=== PATIENT | male | born 1985 | race African-American/Black ===

== ENCOUNTER 2018-10-14 12:43 | Inpatient (IN) | payer MEDICAID ==
[~2018-10-14] VITALS: Ht 182.9 cm; Wt 84.1 kg
[2018-10-14] MEDS ORDERED: LORazepam 2 MG/ML VIAL IM ONE (13:15)
[2018-10-14] MEDS ORDERED: HALOPERIDOL LACTATE 5 MG/ML VIAL IM ONE (13:15)
[2018-10-14] MEDS ORDERED: DiphenhydrAMINE HCL 50 MG/ML VIAL IM ONE (13:15)
[2018-10-14 14:58] LABS: BASOPHILS % (AUTO) 0.9 % (0.0-2.0); EOSINOPHILS % (AUTO) 4.3 % (1.0-6.0); HEMATOCRIT 42.7 % (41-53); HEMOGLOBIN 13.9 g/dL (13.5-17.5); LYMPHOCYTES # (AUTO) 1.8 K/uL (1.0-4.8); LYMPHOCYTES % (AUTO) 40.1 % (22.0-44.0); MEAN CORPUSCULAR HEMOGLOBIN 30.9 pg (26.0-34.0); MEAN CORPUSCULAR HGB CONC 32.6 G/dL (31.0-37.0); MEAN CORPUSCULAR VOLUME 95 fL (80-100); MONOCYTES # (AUTO) 0.4 K/uL (0.1-1.0); MONOCYTES % (AUTO) 7.8 % (2.0-9.0); NEUTROPHILS # (AUTO) 2.1 K/uL (1.8-7.7); NEUTROPHILS % (AUTO) 46.9 % (40.0-70.0); PLATELET COUNT (AUTO) 367 K/uL (150-450); RED CELL DISTRIBUTION WIDTH 13.1 % (11.5-14.5)
[2018-10-14] MEDS ORDERED: ZOLPIDEM TARTRATE 10 MG TABLET PO PRN (15:00)
[2018-10-14 15:06] LABS: ANION GAP 12 mmol/L (8-16); CALCIUM, TOTAL 8.3 mg/dL (8.8-10.5); CARBON DIOXIDE 23 mmol/L (22-29); CHLORIDE 107 mmol/L (98-107); CREATININE 0.84 mg/dL (0.60-1.30); GLOMERULAR FILTR. RATE CALC > 60 mL/min (>60); GLUCOSE,RANDOM 77 mg/dL (70-110); POTASSIUM 3.7 mmol/L (3.5-5.1); SODIUM SERUM 142 mmol/L (136-145); UREA NITROGEN, BLOOD 14 mg/dL (7-18)
[2018-10-14 15:12] LABS: ALANINE AMINOTRANSFERASE 28 U/L (12-78); ALBUMIN 3.5 g/dL (3.4-5.0); ALKALINE PHOSPHATASE 89 U/L (46-116); ASPARTATE AMINOTRANSFERASE 36 U/L (15-37); BILIRUBIN,TOTAL 0.3 mg/dL (0.1-1.0); TOTAL PROTEIN, SERUM 6.7 g/dL (6.4-8.2)
[2018-10-14 21:39] VITALS: BP 127/72
[2018-10-14 21:40] VITALS: BP 127/72
[2018-10-15] VITALS (10 sets, daily range): BP systolic 116–149; BP diastolic 69–86
[2018-10-15 09:07] LABS: CHOL/HDL RATIO 2.2 (4.2-7.3); FREE T4 (FREE THYROXINE) 0.87 ng/dL (0.76-1.46); THYROID STIMULATING HORMONE 0.41 uIU/mL (0.36-3.74)
[2018-10-15] MEDS ORDERED: BACITRACIN 28.4 GM OINTMENT TP PRN (12:15)
[2018-10-15] MEDS ORDERED: CloNIDine HCL 0.1 MG TABLET PO PRN (12:15)
[2018-10-15] MEDS ORDERED: BENZOCAINE/MENTHOL LOZENGE MM PRN (12:15)
[2018-10-15] MEDS ORDERED: MAGNESIUM HYDROXIDE SUSPENSION 30 ML UDCUP PO PRN (12:15)
[2018-10-15] MEDS ORDERED: ACETAMINOPHEN 325 MG TABLET PO PRN (12:15)
[2018-10-15] MEDS ORDERED: PETROLATUM,WHITE 71 GM JELLY TP PRN (12:15)
[2018-10-15] MEDS ORDERED: MAG HYDROX/AL HYDROX/SIMETH ES 30 ML SUSPENSION UDCUP PO PRN (12:15)
[2018-10-15] MEDS ORDERED: IBUPROFEN 600 MG TABLET PO PRN (12:15)
[2018-10-15] MEDS ORDERED: ALBUTEROL SULFATE HFA 90 MCG/PUFF 8 GM INHALER IH PRN (12:15)
[2018-10-15] MEDS ORDERED: LOPERAMIDE HCL 2 MG CAPSULE PO PRN (12:15)
[2018-10-15] MEDS ORDERED: ONDANSETRON HCL 4 MG TABLET PO PRN (12:15)
[2018-10-15] MEDS: LORazepam 2 MG TABLET PO PRN (16:58)
[2018-10-15] MEDS: QUEtiapine FUMARATE 25 MG TABLET PO SCH (20:44)
[2018-10-16 08:58] VITALS: BP 137/75
[2018-10-16] MEDS: DOCUSATE SODIUM 100 MG CAPSULE PO SCH (09:00)
[2018-10-16] MEDS: OMEPRAZOLE 20 MG CAPSULE PO SCH (09:00)
[2018-10-16 09:22] VITALS: BP 137/75
[2018-10-16] MEDS ORDERED: HALOPERIDOL LACTATE 5 MG/ML VIAL IM ONE (10:00)
[2018-10-16] MEDS ORDERED: DiphenhydrAMINE HCL 50 MG/ML VIAL IM ONE (10:00)
[2018-10-16] MEDS ORDERED: LORazepam 2 MG/ML VIAL IM ONE (10:00)
[2018-10-16] MEDS ORDERED: LORazepam 2 MG/ML VIAL ONE (10:04)
[2018-10-16] MEDS ORDERED: DiphenhydrAMINE HCL 50 MG/ML VIAL ONE (10:04)
[2018-10-16] MEDS ORDERED: HALOPERIDOL LACTATE 5 MG/ML VIAL ONE (10:04)
[2018-10-16 10:45] VITALS: BP 135/85
[2018-10-16 16:03] VITALS: BP 135/81
[2018-10-16 16:05] VITALS: BP 135/81
[2018-10-16] MEDS: RisperiDONE 3 MG TABLET PO SCH (16:27)
[2018-10-16] MEDS: LORazepam 2 MG TABLET PO PRN (17:59)
[2018-10-16] MEDS: QUEtiapine FUMARATE 25 MG TABLET PO SCH (20:30)
[2018-10-17 00:59] VITALS: BP 127/88
[2018-10-17 01:00] VITALS: BP 127/88
[2018-10-17] MEDS: OMEPRAZOLE 20 MG CAPSULE PO SCH (08:06)
[2018-10-17] MEDS: DOCUSATE SODIUM 100 MG CAPSULE PO SCH (08:06)
[2018-10-17] MEDS: RisperiDONE 3 MG TABLET PO SCH ×2 (08:06→17:10)
[2018-10-17 08:49] VITALS: BP 126/81
[2018-10-17 09:07] VITALS: BP 126/81
[2018-10-17] MEDS: LORazepam 2 MG TABLET PO PRN ×2 (11:27→17:10)
[2018-10-17] MEDS: HALOPERIDOL 5 MG TABLET PO PRN (11:27)
[2018-10-17 16:00] VITALS: BP 128/74
[2018-10-17] MEDS: QUEtiapine FUMARATE 25 MG TABLET PO SCH (21:16)
[2018-10-18 00:30] VITALS: BP 126/72
[2018-10-18] MEDS: OMEPRAZOLE 20 MG CAPSULE PO SCH (08:24)
[2018-10-18] MEDS: HALOPERIDOL 5 MG TABLET PO PRN (08:24)
[2018-10-18] MEDS: DOCUSATE SODIUM 100 MG CAPSULE PO SCH (08:24)
[2018-10-18] MEDS: RisperiDONE 3 MG TABLET PO SCH (08:24)
[2018-10-18] MEDS: LORazepam 2 MG TABLET PO PRN (08:24)
[2018-10-18 08:30] VITALS: BP 136/84
[2018-10-18] MEDS ORDERED: QUET25TA PO (12:37)
[2018-10-18] MEDS ORDERED: RISP3TAB44 PO (12:37)
== END 2018-10-18 14:49 | disposition home or self-care (01) | DRG 750 ==
LOC: EMS 12:45 → B3A 18:41
PROVIDERS: ADMIT Psychiatry & Neurology Psychiatry; ATTEND Psychiatry & Neurology Psychiatry
DX: F25.9 Schizoaffective disorder, unspecified (principal); F41.9 Anxiety disorder, unspecified; G47.00 Insomnia, unspecified; K59.00 Constipation, unspecified
CPT/HCPCS: 84436; 84439; 84443; 96372; 99291; G0480; J1200; J1630; J2060

== ENCOUNTER 2019-06-09 19:15 | Inpatient (IN) | payer MEDICAID ==
[~2019-06-09] VITALS: Ht 180.3 cm; Wt 65.9 kg
[~2019-06-09 19:15] MED LIST: QUET25TA PO; RISP3TAB44 PO
[2019-06-09] MEDS ORDERED: DiphenhydrAMINE HCL 50 MG/ML VIAL IM ONE (19:45)
[2019-06-09] MEDS ORDERED: HALOPERIDOL LACTATE 5 MG/ML VIAL IM ONE (19:45)
[2019-06-09] MEDS ORDERED: LORazepam 2 MG/ML VIAL IM ONE (19:45)
[2019-06-09 20:01] LABS: AMPHET/METH SCREEN,URINE NEGATIVE (NEGATIVE); BARBITURATE SCREEN, URINE NEGATIVE (NEGATIVE); BENZODIAZEPINES SCREEN,URINE NEGATIVE (NEGATIVE); CANNABINOID SCREEN,URINE POSITIVE (NEGATIVE); COCAINE SCREEN,URINE NEGATIVE (NEGATIVE); METHADONE SCREEN, URINE NEGATIVE (NEGATIVE); OPIATE SCREEN,URINE NEGATIVE (NEGATIVE)
[2019-06-09 20:04] LABS: BASOPHILS % (AUTO) 1.1 % (0.0-2.0); EOSINOPHILS % (AUTO) 1.5 % (1.0-6.0); HEMATOCRIT 42.8 % (41-53); HEMOGLOBIN 14.8 g/dL (13.5-17.5); LYMPHOCYTES # (AUTO) 2.2 K/uL (1.0-4.8); LYMPHOCYTES % (AUTO) 42.6 % (22.0-44.0); MEAN CORPUSCULAR HEMOGLOBIN 33.6 pg (26.0-34.0); MEAN CORPUSCULAR HGB CONC 34.6 G/dL (31.0-37.0); MEAN CORPUSCULAR VOLUME 97 fL (80-100); MONOCYTES # (AUTO) 0.4 K/uL (0.1-1.0); NEUTROPHILS # (AUTO) 2.4 K/uL (1.8-7.7); NEUTROPHILS % (AUTO) 46.8 % (40.0-70.0); PLATELET COUNT (AUTO) 362 K/uL (150-450); RED BLOOD CELL COUNT(AUTO) 4.41 MIL/uL (4.50-5.90); RED CELL DISTRIBUTION WIDTH 13.6 % (11.5-14.5)
[2019-06-09 20:04] LABS: PHENCYCLIDINE SCREEN,URINE NEGATIVE (NEGATIVE)
[2019-06-09 20:05] LABS: APPEARANCE,URINE CLEAR (CLEAR); BILIRUBIN,URINE NEGATIVE (NEGATIVE); GLUCOSE, URINE (UA) NEGATIVE (NEGATIVE); KETONES,URINE NEGATIVE (NEGATIVE); LEUKOCYTE ESTERASE ,URINE NEGATIVE (NEGATIVE); NITRATE,URINE NEGATIVE (NEGATIVE); OCCULT BLOOD,URINE NEGATIVE (NEGATIVE); PROTEIN,URINE NEGATIVE (NEGATIVE)
[2019-06-09] MEDS ORDERED: ZOLPIDEM TARTRATE 10 MG TABLET PO PRN (20:15)
[2019-06-09] MEDS ORDERED: HALOPERIDOL 5 MG TABLET PO PRN (20:15)
[2019-06-09 20:16] LABS: ANION GAP 8 mmol/L (8-16); CALCIUM, TOTAL 7.9 mg/dL (8.8-10.5); CARBON DIOXIDE 29 mmol/L (22-29); CHLORIDE 105 mmol/L (98-107); CREATININE 0.99 mg/dL (0.60-1.30); GLOMERULAR FILTR. RATE CALC > 60 mL/min (>60); GLUCOSE,RANDOM 90 mg/dL (70-110); POTASSIUM 4.2 mmol/L (3.5-5.1); SODIUM SERUM 142 mmol/L (136-145); UREA NITROGEN, BLOOD 13 mg/dL (7-18)
[2019-06-09 20:21] LABS: ALANINE AMINOTRANSFERASE 17 U/L (12-78); ALBUMIN 3.2 g/dL (3.4-5.0); ALKALINE PHOSPHATASE 66 U/L (46-116); ASPARTATE AMINOTRANSFERASE 27 U/L (15-37); BILIRUBIN,TOTAL 0.3 mg/dL (0.1-1.0); TOTAL PROTEIN, SERUM 6.5 g/dL (6.4-8.2)
[2019-06-09 21:23] VITALS: BP 98/59
[2019-06-10 06:37] LABS: CHOL/HDL RATIO 2.1 (4.2-7.3)
[2019-06-10] MEDS ORDERED: LOPERAMIDE HCL 2 MG CAPSULE PO PRN (07:00)
[2019-06-10] MEDS ORDERED: DOCUSATE SODIUM 100 MG CAPSULE PO PRN (07:00)
[2019-06-10] MEDS ORDERED: IBUPROFEN 600 MG TABLET PO PRN (07:00)
[2019-06-10] MEDS ORDERED: ACETAMINOPHEN 325 MG TABLET PO PRN (07:00)
[2019-06-10] MEDS ORDERED: MAGNESIUM HYDROXIDE SUSPENSION 30 ML UDCUP PO PRN (07:00)
[2019-06-10] MEDS ORDERED: BACITRACIN 28.4 GM OINTMENT TP PRN (07:00)
[2019-06-10] MEDS ORDERED: MAG HYDROX/AL HYDROX/SIMETH ES 30 ML SUSPENSION UDCUP PO PRN (07:00)
[2019-06-10] MEDS ORDERED: OMEPRAZOLE 20 MG CAPSULE PO PRN (07:00)
[2019-06-10] MEDS ORDERED: ALBUTEROL SULFATE HFA 90 MCG/PUFF 8 GM INHALER IH PRN (07:00)
[2019-06-10] MEDS ORDERED: ONDANSETRON HCL 4 MG TABLET PO PRN (07:00)
[2019-06-10] MEDS ORDERED: BENZOCAINE/MENTHOL LOZENGE MM PRN (07:00)
[2019-06-10] MEDS ORDERED: PETROLATUM,WHITE 28 GM JELLY TP PRN (07:00)
[2019-06-10] MEDS ORDERED: CloNIDine HCL 0.1 MG TABLET PO PRN (07:00)
[2019-06-10 08:52] VITALS: BP 120/65
[2019-06-10] MEDS: RisperiDONE 2 MG TABLET PO SCH (18:23)
[2019-06-10] MEDS: DIVALPROEX SODIUM 500 MG DR TABLET PO SCH (18:23)
[2019-06-10 20:21] VITALS: BP 134/77
[2019-06-11] MEDS ORDERED: INFLUENZA VIRUS VACCINE QVS 2019-20 (3YR+)/PF 60 MCG/0.5 ML SYRINGE IM ONE (02:45)
[2019-06-11] MEDS: RisperiDONE 2 MG TABLET PO SCH ×2 (08:03→16:22)
[2019-06-11] MEDS: DIVALPROEX SODIUM 500 MG DR TABLET PO SCH ×2 (08:03→16:22)
[2019-06-11] MEDS: LORazepam 2 MG TABLET PO PRN (08:08)
[2019-06-11 09:58] VITALS: BP 143/83
[2019-06-11 16:46] VITALS: BP 125/83
[2019-06-12] MEDS: RisperiDONE 2 MG TABLET PO SCH (08:12)
[2019-06-12] MEDS: DIVALPROEX SODIUM 500 MG DR TABLET PO SCH (08:12)
[2019-06-12] MEDS: LORazepam 2 MG TABLET PO PRN (08:43)
[2019-06-12 09:46] VITALS: BP 143/92
[2019-06-12] MEDS ORDERED: DIVA-78 PO (12:44)
== END 2019-06-12 15:15 | disposition home or self-care (01) | DRG 750 ==
LOC: EMS 19:16 → 3EC 20:30
PROVIDERS: ADMIT Psychiatry & Neurology Psychiatry; ATTEND Psychiatry & Neurology Psychiatry
DX: F20.0 Paranoid schizophrenia (principal); I95.9 Hypotension, unspecified; E83.51 Hypocalcemia; Z59.0 Homelessness; F10.10 Alcohol abuse, uncomplicated; F12.90 Cannabis use, unspecified, uncomplicated; F19.10 Other psychoactive substance abuse, uncomplicated; Z71.41 Alcohol abuse counseling and surveillance of alcoholic; Z71.89 Other specified counseling
CPT/HCPCS: G0480; J1200; J1630; J2060

== ENCOUNTER 2020-12-15 12:57 | Inpatient (IN) | payer MEDICAID, OTHER ==
[~2020-12-15] VITALS: Ht 182.9 cm; Wt 88.9 kg
[~2020-12-15 12:57] MED LIST changes: +DIVA-112 PO; -QUET25TA PO
[2020-12-15] MEDS ORDERED: LORazepam 2 MG/ML VIAL IM ONE (15:45)
[2020-12-15] MEDS ORDERED: HALOPERIDOL LACTATE 5 MG/ML VIAL IM ONE (15:45)
[2020-12-15] MEDS ORDERED: DiphenhydrAMINE HCL 50 MG/ML VIAL IM ONE (15:45)
[2020-12-15] MEDS ORDERED: HALOPERIDOL 5 MG TABLET PO PRN (20:00)
[2020-12-15] MEDS ORDERED: LORazepam 2 MG TABLET PO PRN (20:00)
[2020-12-15] MEDS ORDERED: ZOLPIDEM TARTRATE 10 MG TABLET PO PRN (20:00)
[2020-12-15 20:21] LABS: COVID AG,FIA SOURCE NASOPHARYNGEAL
[2020-12-15 21:18] LABS: BASOPHILS % (AUTO) 0.7 % (0.0-2.0); EOSINOPHILS % (AUTO) 1.6 % (1.0-6.0); HEMATOCRIT 43.9 % (41-53); HEMOGLOBIN 14.7 g/dL (13.5-17.5); LYMPHOCYTES # (AUTO) 2.8 K/uL (1.0-4.8); LYMPHOCYTES % (AUTO) 41.6 % (22.0-44.0); MEAN CORPUSCULAR HEMOGLOBIN 31.2 pg (26.0-34.0); MEAN CORPUSCULAR HGB CONC 33.4 G/dL (31.0-37.0); MEAN CORPUSCULAR VOLUME 93 fL (80-100); MONOCYTES # (AUTO) 0.8 K/uL (0.1-1.0); MONOCYTES % (AUTO) 11.5 % (2.0-9.0); NEUTROPHILS % (AUTO) 44.6 % (40.0-70.0); PLATELET COUNT (AUTO) 424 K/uL (150-450); RED BLOOD CELL COUNT(AUTO) 4.71 MIL/uL (4.50-5.90); RED CELL DISTRIBUTION WIDTH 13.6 % (11.5-14.5)
[2020-12-15 21:37] LABS: ALANINE AMINOTRANSFERASE 29 U/L (12-78); ALBUMIN 3.3 g/dL (3.4-5.0); ALKALINE PHOSPHATASE 95 U/L (46-116); ANION GAP 7 mmol/L (8-16); ASPARTATE AMINOTRANSFERASE 28 U/L (15-37); BILIRUBIN,TOTAL 0.5 mg/dL (0.1-1.0); CARBON DIOXIDE 26 mmol/L (22-29); CHLORIDE 107 mmol/L (98-107); CREATININE 0.79 mg/dL (0.60-1.30); GLOMERULAR FILTR. RATE CALC > 60 mL/min (>60); GLUCOSE,RANDOM 89 mg/dL (70-110); POTASSIUM 3.8 mmol/L (3.5-5.1); SODIUM SERUM 140 mmol/L (136-145); TOTAL PROTEIN, SERUM 6.1 g/dL (6.4-8.2); UREA NITROGEN, BLOOD 12 mg/dL (7-18)
[2020-12-15 21:42] LABS: ACETAMINOPHEN < 2 mcg/mL (10-30); VALPROIC ACID < 3 mcg/mL (50-100)
[2020-12-15 21:52] LABS: SALICYLATE 1.3 mg/dL (2.8-20.0)
[2020-12-15 21:59] LABS: CALCIUM, TOTAL 8.5 mg/dL (8.8-10.5)
[2020-12-15 22:16] VITALS: BP 137/86
[2020-12-16 06:52] LABS: CHOL/HDL RATIO 2.9 (4.2-7.3)
[2020-12-16] MEDS ORDERED: NICOTINE 14 MG/24 HOUR PATCH TD PRN (07:30)
[2020-12-16] MEDS ORDERED: ALBUTEROL SULFATE HFA 90 MCG/PUFF 8 GM INHALER IH PRN (07:30)
[2020-12-16] MEDS ORDERED: PETROLATUM,WHITE 28 GM JELLY TP PRN (07:30)
[2020-12-16] MEDS ORDERED: MAG HYDROX/AL HYDROX/SIMETH ES 30 ML SUSPENSION UDCUP PO PRN (07:30)
[2020-12-16] MEDS ORDERED: ONDANSETRON HCL 4 MG TABLET PO PRN (07:30)
[2020-12-16] MEDS ORDERED: GuaiFENesin/D-METHORPHAN [SUGAR-FREE] 200-20MG/10 ML SYRUP UDCUP PO PRN (07:30)
[2020-12-16] MEDS ORDERED: ACETAMINOPHEN 325 MG TABLET PO PRN (07:30)
[2020-12-16] MEDS ORDERED: DOCUSATE SODIUM 100 MG CAPSULE PO PRN (07:30)
[2020-12-16] MEDS ORDERED: CloNIDine HCL 0.1 MG TABLET PO PRN (07:30)
[2020-12-16] MEDS ORDERED: IBUPROFEN 400 MG TABLET PO PRN (07:30)
[2020-12-16] MEDS ORDERED: MAGNESIUM HYDROXIDE SUSPENSION 30 ML UDCUP PO PRN (07:30)
[2020-12-16] MEDS ORDERED: LOPERAMIDE HCL 2 MG CAPSULE PO PRN (07:30)
[2020-12-16] MEDS: FLUoxetine HCL 20 MG CAPSULE PO SCH (12:24)
[2020-12-16 16:00] VITALS: BP 138/81
[2020-12-16] MEDS: RisperiDONE 2 MG TABLET PO SCH (17:03)
[2020-12-16] MEDS: DIVALPROEX SODIUM 500 MG DR TABLET PO SCH (17:03)
[2020-12-16] MEDS: QUEtiapine FUMARATE 200 MG TABLET PO SCH (20:13)
[2020-12-17 08:11] VITALS: BP 112/55
[2020-12-17] MEDS: RisperiDONE 2 MG TABLET PO SCH ×2 (09:23→16:24)
[2020-12-17] MEDS: FLUoxetine HCL 20 MG CAPSULE PO SCH (09:23)
[2020-12-17] MEDS: DIVALPROEX SODIUM 500 MG DR TABLET PO SCH ×2 (09:23→16:24)
[2020-12-17 16:00] VITALS: BP 133/81
[2020-12-17] MEDS: QUEtiapine FUMARATE 200 MG TABLET PO SCH (20:20)
[2020-12-18 08:34] VITALS: BP 116/70
[2020-12-18] MEDS: RisperiDONE 2 MG TABLET PO SCH (09:49)
[2020-12-18] MEDS: DIVALPROEX SODIUM 500 MG DR TABLET PO SCH (09:49)
[2020-12-18] MEDS: FLUoxetine HCL 20 MG CAPSULE PO SCH (09:49)
[2020-12-18] MEDS ORDERED: FLUO-191 PO (11:02)
[2020-12-18] MEDS ORDERED: QUET200T PO (11:03)
== END 2020-12-18 13:30 | disposition home or self-care (01) | DRG 750 ==
LOC: EMS 12:57 → 3EC 19:53
PROVIDERS: ADMIT Psychiatry & Neurology Child & Adolescent Psychiatry; ATTEND Psychiatry & Neurology Child & Adolescent Psychiatry
DX: F20.0 Paranoid schizophrenia (principal); R45.851 Suicidal ideations; Z78.1 Physical restraint status; F10.10 Alcohol abuse, uncomplicated; F41.9 Anxiety disorder, unspecified; F12.10 Cannabis abuse, uncomplicated; F15.10 Other stimulant abuse, uncomplicated; R00.0 Tachycardia, unspecified; Z20.822 Contact with and (suspected) exposure to COVID-19
CPT/HCPCS: 80053; 80061; 80164; 85025; 87426; 99291; G0480; G0481; J1200; J1630; J2060